=== PATIENT | male | born 1965 | race Caucasian/White ===

== ENCOUNTER 2021-07-25 09:01 | Observation (INO) | payer OTHER ==
[~2021-07-25] VITALS: Ht 162.6 cm; Wt 70.5 kg
[2021-07-25] MEDS ORDERED: AMLO-257 PO (10:23)
[2021-07-25] MEDS ORDERED: ATOR40TA28 PO (10:23)
[2021-07-25] MEDS ORDERED: LOSA-382 PO (10:23)
[2021-07-25] MEDS ORDERED: METO25TA3 PO (10:23)
[2021-07-25] MEDS ORDERED: DiphenhydrAMINE HCL 50 MG CAPSULE PO ONE (11:15)
[2021-07-25] MEDS ORDERED: DIAZEPAM 5 MG TABLET PO ONE (11:15)
[2021-07-25] MEDS ORDERED: ASPIRIN 81 MG CHEWABLE TABLET PO ONE (11:15)
[2021-07-25] MEDS ORDERED: SODIUM CHLORIDE 0.9% 1,000 ML IV ONE (12:00)
[2021-07-25] MEDS ORDERED: SODIUM CHLORIDE 0.9% 1,000 ML ONE (13:38)
[2021-07-25] MEDS ORDERED: DiphenhydrAMINE HCL 50 MG CAPSULE ONE (15:13)
[2021-07-25] MEDS ORDERED: ASPIRIN 81 MG CHEWABLE TABLET ONE (15:13)
[2021-07-25] MEDS ORDERED: DIAZEPAM 5 MG TABLET ONE (15:14)
[2021-07-25] MEDS: SODIUM CHLORIDE 0.9% 1,000 ML IV SCH (15:21)
[2021-07-25] MEDS ORDERED: SODIUM BICARBONATE 50 MEQ/50 ML VIAL ONE (17:18)
[2021-07-25] MEDS ORDERED: IOHEXOL 300 MG/ML 100 ML VIAL ONE (17:18)
[2021-07-25] MEDS ORDERED: IOHEXOL 300 MG/ML 50 ML VIAL ONE (17:18)
[2021-07-25] MEDS ORDERED: HEPARIN SODIUM 1000 UNITS/NS 1,000 ML ONE (17:18)
[2021-07-25] MEDS ORDERED: IOHEXOL 300 MG/ML 150 ML VIAL ONE (17:18)
[2021-07-25] MEDS ORDERED: LIDOCAINE/PF 1% 30 ML VIAL ONE (17:18)
[2021-07-25 17:40] VITALS: BP 157/90
[2021-07-25] MEDS ORDERED: MIDAZOLAM HCL 2 MG/2 ML VIAL ONE (17:44)
[2021-07-25] MEDS ORDERED: FentaNYL CITRATE PF 100 MCG/2 ML VIAL ONE (17:44)
[2021-07-25] MEDS ORDERED: FentaNYL CITRATE PF 100 MCG/2 ML VIAL IVP ONE (18:00)
[2021-07-25] MEDS ORDERED: HEPARIN SODIUM 1000 UNITS/NS 1,000 ML IARTER ONE (18:00)
[2021-07-25] MEDS ORDERED: MIDAZOLAM HCL 2 MG/2 ML VIAL IVP ONE (18:00)
[2021-07-25] MEDS ORDERED: IOHEXOL 300 MG/ML 150 ML VIAL IARTER ONE (18:00)
[2021-07-25] MEDS ORDERED: LIDOCAINE 1% 30 ML/SOD BICARB 8.4% 4 ML SQ ONE (18:00)
[2021-07-25 18:09] VITALS: BP 148/82
[2021-07-25] MEDS ORDERED: ONDANSETRON HCL 4 MG/2 ML VIAL IVP PRN (21:00)
[2021-07-25] MEDS: LOSARTAN POTASSIUM 50 MG TABLET PO SCH (22:13)
[2021-07-26] MEDS: HEPARIN SODIUM,PORCINE 5,000 UNITS/ML VIAL SQ SCH ×2 (00:07→08:43)
[2021-07-26] MEDS: SODIUM CHLORIDE 0.9% 1,000 ML IV SCH (00:09)
[2021-07-26 00:41] VITALS: BP 137/80
[2021-07-26 03:34] VITALS: BP 126/84
[2021-07-26 04:47] LABS: HEMATOCRIT 39.5 % (41-53); HEMOGLOBIN 13.6 g/dL (13.5-17.5)
[2021-07-26] MEDS ORDERED: MORPHINE SULFATE 2 MG/ML SYRINGE IVP ONE (05:15)
[2021-07-26 08:00] VITALS: BP 96/62
[2021-07-26] MEDS: LOSARTAN POTASSIUM 50 MG TABLET PO SCH (08:43)
[2021-07-26] MEDS ORDERED: AmLODIPine BESYLATE 5 MG TABLET PO SCH (09:00)
[2021-07-26] MEDS ORDERED: METOPROLOL SUCCINATE 25 MG ER TABLET PO SCH (09:00)
[2021-07-26] MEDS ORDERED: ATORVASTATIN CALCIUM 40 MG TABLET PO SCH (09:00)
[2021-07-26] MEDS ORDERED: ACETAMINOPHEN 325 MG TABLET PO ONE (11:00)
[2021-07-26 11:23] VITALS: BP 120/86
== END 2021-07-26 13:45 | disposition home or self-care (01) ==
LOC: CATHLAB 09:01 → 5S 19:50 → INTOOBSV 19:50
PROVIDERS: ADMIT Internal Medicine; ATTEND Internal Medicine
DX: I25.10 Atherosclerotic heart disease of native coronary artery without angina pectoris (principal); I10 Essential (primary) hypertension; Z20.822 Contact with and (suspected) exposure to COVID-19; Z79.899 Other long term (current) drug therapy; F17.200 Nicotine dependence, unspecified, uncomplicated
CPT/HCPCS: 36415; 85014; 85018; 87081; 93005; 93458; 96372; 96374; 99219 ×2; C1760; J1644 ×2; J2250; J2270; J3010; J3490 ×2; J7030; Q9967